=== PATIENT | female | born 1930 | race Hispanic/Latino ===

== ENCOUNTER → 2017-10-07 | Outpatient (CLI) | payer OTHER ==
[~2017-10-07] MED LIST: ACET-66 PO; ACET325T51 PO; ATOR40TA71 PO; CALC-866 PO; CEFU500T67 PO; CELE100 PO; DICL2100G TP; ENOX40DI8 SQ; FERR-63 PO; GEMF600T3 PO; GLIM2TAB3 PO; HYDR-309 PO; LEVO75 PO; SERT100T12 PO
== END | disposition home or self-care (01) ==
LOC: RAH 13:47
PROVIDERS: ATTEND Orthopaedic Surgery
DX: S72.001A Fracture of unspecified part of neck of right femur, initial encounter for closed fracture (principal); X58.XXXA Exposure to other specified factors, initial encounter; Y93.89 Activity, other specified; Y92.89 Other specified places as the place of occurrence of the external cause; Y99.8 Other external cause status
CPT/HCPCS: 73700

== ENCOUNTER 2017-10-08 15:50 | Inpatient (IN) | payer OTHER ==
[~2017-10-08] VITALS: Ht 157.5 cm; Wt 78.3 kg
[2017-10-08] MEDS ORDERED: SODIUM CHLORIDE 0.9% 1000ML 1,000 ML IV SCH (16:18)
[2017-10-08] MEDS ORDERED: POTASSIUM CHLORIDE 10% ELIXIR 20 MEQ/15 ML UDCUP PO PRN (16:30)
[2017-10-08] MEDS ORDERED: HYDROCODONE/ACETAMINOPHEN 5/325 MG TAB PO PRN (16:30)
[2017-10-08] MEDS ORDERED: HYDRALAZINE HCL 20 MG/ML VIAL IV PRN (16:30)
[2017-10-08] MEDS ORDERED: ONDANSETRON HCL 4 MG/2 ML VIAL IV PRN (16:30)
[2017-10-08] MEDS ORDERED: GUAIFENESIN-DM 200/20 MG 10 ML PO PRN (16:30)
[2017-10-08] MEDS: INSULIN HUMULIN R 100 UNIT/ML 3ML SQ SCH ×2 (16:30→21:00)
[2017-10-08] MEDS ORDERED: MAG HYDROX/AL HYDROX/SIMETH ES 30 ML SUSP UDCUP PO PRN (16:30)
[2017-10-08] MEDS ORDERED: ACETAMINOPHEN 325 MG TAB PO PRN ×2 (16:30)
[2017-10-08] MEDS ORDERED: LIDOCAINE HCL-MPF 1% 2ML VIAL IVP PRN (16:30)
[2017-10-08] MEDS ORDERED: POTASSIUM CHLORIDE 20MEQ/100ML 100 ML IV PRN (16:30)
[2017-10-08] MEDS ORDERED: NITROGLYCERIN 0.4 MG SL TAB SL PRN (16:30)
[2017-10-08 16:47] LABS: HEMATOCRIT 28.4 % (36-48); MEAN CORPUSCULAR HGB CONC 33.9 g/dL (32.0-36.0); MEAN CORPUSCULAR VOLUME 82.5 fL (79-99); PLATELET COUNT (AUTO) 180 K/uL (130-400); RED BLOOD CELL COUNT(AUTO) 3.44 MIL/uL (4.00-5.50); RED CELL DISTRIBUTION WIDTH 19.6 % (11.0-15.5); WHITE BLOOD COUNT (AUTO) 5.1 K/uL (4.8-10.8)
[2017-10-08 16:58] LABS: INR 1.07 (0.85-1.15); PARTIAL THROMBOPLASTIN TIME 34.6 SEC (26.3-35.5); PROTHROMBIN TIME 11.2 SEC (9.6-11.6)
[2017-10-08 17:16] LABS: ALANINE AMINOTRANSFERASE 9 U/L (12-78); ALBUMIN 2.7 g/dL (3.5-5.0); ASPARTATE AMINOTRANSFERASE 15 U/L (10-37); BILIRUBIN,TOTAL 0.3 mg/dL (0.2-1.0); CARBON DIOXIDE 21 mmol/L (21-32); CHLORIDE 106 mmol/L (101-111); CREATINE KINASE MB < 0.5 ng/mL (0.5-3.6); CREATINE KINASE, TOTAL 24 U/L (21-232); CREATININE 1.5 mg/dL (0.5-1.5); GLOMERULAR FILTR. RATE CALC 35 mL/min (>60); GLUCOSE,RANDOM 97 mg/dL (70-105); MYOGLOBIN 62 ng/mL (10-92); PHOSPHORUS 3.9 mg/dL (2.5-4.9); POTASSIUM 3.9 mmol/L (3.5-5.1); SODIUM SERUM 140 mmol/L (136-145); TOTAL PROTEIN, SERUM 6.4 g/dL (6.0-8.3); TROPONIN I < 0.04 ng/mL (0.00-0.06); UREA NITROGEN, BLOOD 36 mg/dL (7-18)
[2017-10-08 17:55] VITALS: BP 113/56
[2017-10-08] MEDS: MORPHINE SULFATE 2 MG/ML 1ML SYG IV PRN (18:08)
[2017-10-08 18:24] LABS: BAND NEUTROPHILS % (MANUAL) 7 % (0-2); LYMPHOCYTES % (MANUAL) 11 % (22-44); MONOCYTES % (MANUAL) 4 % (2-9); REACTIVE LYMPHOCYTES 3 % (0-0); SEGMENTED NEUTROPHILS % 75 % (40-70)
[2017-10-08] MEDS ORDERED: SERT100T12 PO (18:26)
[2017-10-08] MEDS ORDERED: HYDR-309 PO (18:26)
[2017-10-08] MEDS ORDERED: LEVO75 PO (18:26)
[2017-10-08] MEDS ORDERED: GEMF600T3 PO (18:26)
[2017-10-08] MEDS ORDERED: ACET325T51 PO (18:26)
[2017-10-08] MEDS ORDERED: ACET-66 PO (18:26)
[2017-10-08] MEDS ORDERED: FERR-63 PO (18:26)
[2017-10-08] MEDS ORDERED: GLIM2TAB3 PO (18:26)
[2017-10-08] MEDS ORDERED: CALC-866 PO (18:26)
[2017-10-08] MEDS ORDERED: ATOR40TA71 PO (18:26)
[2017-10-08] MEDS ORDERED: CELE100 PO (18:26)
[2017-10-08] MEDS ORDERED: DICL2100G TP (18:26)
[2017-10-08 18:28] LABS: MAN.DIFF COMMENT-IMPRESSION MANUAL DIFFERENTIAL
[2017-10-08 18:29] LABS: PLATELET MORPHOLOGY COMMENT PLT CLUMPS PRESENT
[2017-10-08 19:00] VITALS: BP 130/67
[2017-10-08 19:25] LABS: APPEARANCE,URINE CLOUDY (CLEAR); BILIRUBIN,URINE NEGATIVE (NEGATIVE); COLOR,URINE YELLOW (YELLOW); GLUCOSE, URINE (UA) NEGATIVE (NEGATIVE); KETONES,URINE NEGATIVE (NEGATIVE); LEUKOCYTE ESTERASE ,URINE MODERATE (NEGATIVE); NITRATE,URINE POSITIVE (NEGATIVE); OCCULT BLOOD,URINE TRACE-INTACT (NEGATIVE); PH,URINE 5.5 (5.0-8.0); PROTEIN,URINE 30 (NEGATIVE); UROBILINOGEN,URINE 0.2 mg/dL (0.2-1.0)
[2017-10-08 19:49] LABS: WBC,URINE >100 /HPF (0-1)
[2017-10-08 19:51] LABS: BACTERIA,URINE Moderate /HPF (None Seen); SQUAMOUS EPITHELIAL CELL,UR Rare /LPF (0-2)
[2017-10-08] MEDS: FAMOTIDINE 20MG TAB 20 MG TAB PO SCH (21:50)
[2017-10-08] MEDS: MORPHINE SULFATE 4 MG/1ML SYG IV PRN (22:09)
[2017-10-09] VITALS (44 sets, daily range): BP systolic 72–173; BP diastolic 32–102
[2017-10-09] MEDS: MORPHINE SULFATE 4 MG/1ML SYG IV PRN ×3 (02:18→20:44)
[2017-10-09 05:48] LABS: HEMATOCRIT 27.7 % (36-48); MEAN CORPUSCULAR HEMOGLOBIN 27.8 pg (27.0-33.0); MEAN CORPUSCULAR HGB CONC 34.2 g/dL (32.0-36.0); MEAN CORPUSCULAR VOLUME 81.3 fL (79-99); NUCLEATED RED BLOOD CELLS 0.1 % (0.0-0.19); PLATELET COUNT (AUTO) 189 K/uL (130-400); RED BLOOD CELL COUNT(AUTO) 3.41 MIL/uL (4.00-5.50); RED CELL DISTRIBUTION WIDTH 19.7 % (11.0-15.5); WHITE BLOOD COUNT (AUTO) 5.4 K/uL (4.8-10.8)
[2017-10-09 05:58] LABS: CREATININE 1.2 mg/dL (0.5-1.5); POTASSIUM 3.6 mmol/L (3.5-5.1)
[2017-10-09] MEDS ORDERED: CEFAZOLIN 2GM / 50 ML 50 ML IV ONE (07:00)
[2017-10-09] MEDS ORDERED: CEFAZOLIN SODIUM 1 GM VIAL IVP SCH ×2 (07:00→16:45)
[2017-10-09] MEDS: INSULIN HUMULIN R 100 UNIT/ML 3ML SQ SCH ×4 (07:29→21:00)
[2017-10-09] MEDS: FAMOTIDINE 20MG TAB 20 MG TAB PO SCH ×2 (08:08→20:50)
[2017-10-09] MEDS ORDERED: SODIUM CHLORIDE 0.9% 1000ML 1,000 ML IV ONE (09:05)
[2017-10-09] MEDS ORDERED: WATER FOR INJECTION,STERILE 20 ML VIAL ONE (09:05)
[2017-10-09] MEDS: MORPHINE SULFATE 2 MG/ML 1ML SYG IV PRN ×2 (09:25→20:44)
[2017-10-09] MEDS ORDERED: LIDOCAINE PF 2% 5ML ABBOJECT ONE (09:37)
[2017-10-09] MEDS ORDERED: DEXAMETHASONE SOD PHOSPHATE 10MG/ML 1ML VIAL ONE (09:37)
[2017-10-09] MEDS ORDERED: NEOSTIGMINE METHYLSULFATE 1MG/ML IV ONE (09:37)
[2017-10-09] MEDS ORDERED: SUCCINYLCHOLINE 200MG/10ML SYR ONE (09:37)
[2017-10-09] MEDS ORDERED: ONDANSETRON HCL 4 MG/2 ML VIAL ONE (09:37)
[2017-10-09] MEDS ORDERED: GLYCOPYRROLATE 0.2 MG/ML 5 ML VIAL ONE (09:37)
[2017-10-09] MEDS ORDERED: PROPOFOL 10 MG/ML 20ML VIAL IV ONE (09:38)
[2017-10-09] MEDS ORDERED: MIDAZOLAM HCL 1 MG/ML 2ML VIAL ONE (09:38)
[2017-10-09] MEDS ORDERED: FENTANYL CITRATE PF 50 MCG/1 ML 2ML VIAL ONE ×2 (09:38→13:58)
[2017-10-09] MEDS ORDERED: ROPIVACAINE 0.5% 5MG/ML 30ML IJ ONE (09:44)
[2017-10-09] MEDS ORDERED: CEFTRIAXONE 1GM/D5W 50ML 50 ML IV SCH ×2 (10:15→16:30)
[2017-10-09] MEDS ORDERED: CEFTRIAXONE SODIUM 1 GM IVP SCH (10:15)
[2017-10-09] MEDS ORDERED: CEFAZOLIN SODIUM 1 GM VIAL ONE (10:57)
[2017-10-09] MEDS ORDERED: SODIUM CHLORIDE 0.9% 1000ML 1,000 ML IV SCH (11:41)
[2017-10-09] MEDS ORDERED: POTASSIUM CHLORIDE 20 MEQ ERTAB PO PRN (11:45)
[2017-10-09] MEDS ORDERED: PROMETHAZINE HCL 25 MG/ML 1ML AMPULE IM PRN (11:45)
[2017-10-09] MEDS ORDERED: POTASSIUM CHLORIDE 10% ELIXIR 20 MEQ/15 ML UDCUP PO PRN (11:45)
[2017-10-09] MEDS ORDERED: DiphenhydrAMINE HCL 50 MG/ML VIAL IVP PRN (11:45)
[2017-10-09] MEDS ORDERED: DIPHENHYDRAMINE HCL 25 MG CAPSULE PO PRN (11:45)
[2017-10-09] MEDS ORDERED: TRAMADOL HCL 50 MG TABLET PO PRN (11:45)
[2017-10-09] MEDS ORDERED: TEMAZEPAM 15 MG CAPSULE PO PRN (11:45)
[2017-10-09] MEDS ORDERED: POTASSIUM CHLORIDE 20MEQ/100ML 100 ML IV PRN (11:45)
[2017-10-09] MEDS ORDERED: FERROUS FUMARATE 324 MG TABLET PO PRN (11:45)
[2017-10-09] MEDS ORDERED: CALCIUM CARBONATE 500 MG TABLET PO PRN (11:45)
[2017-10-09] MEDS ORDERED: LIDOCAINE HCL-MPF 1% 2ML VIAL IVP PRN (11:45)
[2017-10-09] MEDS ORDERED: LABETALOL HCL 5 MG/ML 20ML VIAL IV ONE (11:48)
[2017-10-09] MEDS ORDERED: IPRATROPIUM 0.5 MG/2.5 ML INH IH ONE (12:46)
[2017-10-09] MEDS ORDERED: ESMOLOL HCL 10 MG/ML 10 ML VIAL ONE (12:52)
[2017-10-09 13:03] LABS: ABG BASE EXCESS -13.6 mmol/L (-2.0-3.0); ABG HCO3 15.6 mmol/L (21.0-28.0); ABG OXYGEN SATURATION 90.8 % (95.0-99.0); ABG PCO2 51 mmHg (32-45)
[2017-10-09] MEDS ORDERED: SODIUM BICARB 8.4% 50ML SYRINGE ONE ×3 (13:04→14:13)
[2017-10-09 13:15] LABS: HEMATOCRIT 31.5 % (36-48); MEAN CORPUSCULAR HEMOGLOBIN 27.7 pg (27.0-33.0); MEAN CORPUSCULAR HGB CONC 32.9 g/dL (32.0-36.0); PLATELET COUNT (AUTO) 276 K/uL (130-400); RED BLOOD CELL COUNT(AUTO) 3.75 MIL/uL (4.00-5.50); WHITE BLOOD COUNT (AUTO) 11.6 K/uL (4.8-10.8)
[2017-10-09 13:32] LABS: CARBON DIOXIDE 20 mmol/L (21-32); CHLORIDE 107 mmol/L (101-111); CREATININE 1.3 mg/dL (0.5-1.5); GLOMERULAR FILTR. RATE CALC 41 mL/min (>60); GLUCOSE,RANDOM 149 mg/dL (70-105); POTASSIUM 4.2 mmol/L (3.5-5.1); SODIUM SERUM 141 mmol/L (136-145); UREA NITROGEN, BLOOD 25 mg/dL (7-18)
[2017-10-09 13:52] LABS: BAND NEUTROPHILS % (MANUAL) 10 % (0-2); BASOPHILS % (MANUAL) 1 % (0-2); EOSINOPHILS % (MANUAL) 1 % (1-6); LYMPHOCYTES % (MANUAL) 9 % (22-44); MAN.DIFF COMMENT-IMPRESSION MANUAL DIFFERENTIAL; MONOCYTES % (MANUAL) 5 % (2-9); PLATELET MORPHOLOGY COMMENT ADEQUATE; SEGMENTED NEUTROPHILS % 74 % (40-70)
[2017-10-09 14:11] LABS: CREATINE KINASE MB 0.9 ng/mL (0.5-3.6); CREATINE KINASE, TOTAL 54 U/L (21-232); MYOGLOBIN 190 ng/mL (10-92); TROPONIN I < 0.04 ng/mL (0.00-0.06)
[2017-10-09 14:38] LABS: ABG OXYGEN SATURATION 88.8 % (95.0-99.0); ABG PCO2 38 mmHg (32-45)
[2017-10-09] MEDS ORDERED: IPRATROPIUM/ALBUTEROL SULFATE 3 ML SOLUTION IH ONE (14:53)
[2017-10-09] MEDS ORDERED: IPRATROPIUM/ALBUTEROL SULFATE 3 ML SOLUTION IH SCH (15:00)
[2017-10-09] MEDS ORDERED: CEFAZOLIN 2GM / 50 ML 50 ML IV SCH (16:45)
[2017-10-09] MEDS: CEFTRIAXONE SODIUM 1 GM IVP SCH (17:31)
[2017-10-09] MEDS: IPRATROPIUM/ALBUTEROL SULFATE 3 ML SOLUTION IH SCH (19:20)
[2017-10-09] MEDS: ATORVASTATIN CALCIUM 40 MG TABLET PO SCH (20:50)
[2017-10-09] MEDS: GEMFIBROZIL 600 MG TABLET PO SCH (20:50)
[2017-10-09] MEDS: SERTRALINE HCL 50 MG TABLET PO SCH (21:58)
[2017-10-10] VITALS (8 sets, daily range): BP systolic 88–109; BP diastolic 45–61
[2017-10-10] MEDS: IPRATROPIUM/ALBUTEROL SULFATE 3 ML SOLUTION IH SCH ×5 (00:14→17:23)
[2017-10-10] MEDS: KETOROLAC TROMETHAMINE 15MG/ML IV PRN (01:09)
[2017-10-10] MEDS: HYDROCODONE/ACETAMINOPHEN 5/325 MG TAB PO PRN ×3 (04:49→20:35)
[2017-10-10 05:00] LABS: MEAN CORPUSCULAR HEMOGLOBIN 28.7 pg (27.0-33.0); MEAN CORPUSCULAR HGB CONC 34.9 g/dL (32.0-36.0); MEAN CORPUSCULAR VOLUME 82.2 fL (79-99); PLATELET COUNT (AUTO) 163 K/uL (130-400); RED BLOOD CELL COUNT(AUTO) 2.92 MIL/uL (4.00-5.50); RED CELL DISTRIBUTION WIDTH 19.9 % (11.0-15.5); WHITE BLOOD COUNT (AUTO) 4.8 K/uL (4.8-10.8)
[2017-10-10 05:10] LABS: B-TYPE NATRIURETIC PEPTIDE 518 pg/mL (0-100); CREATININE 1.2 mg/dL (0.5-1.5); POTASSIUM 3.4 mmol/L (3.5-5.1)
[2017-10-10] MEDS: MORPHINE SULFATE 4 MG/1ML SYG IV PRN (06:04)
[2017-10-10] MEDS: INSULIN HUMULIN R 100 UNIT/ML 3ML SQ SCH ×4 (07:30→21:00)
[2017-10-10] MEDS ORDERED: SERTRALINE HCL 50 MG TABLET PO SCH (09:00)
[2017-10-10] MEDS: GEMFIBROZIL 600 MG TABLET PO SCH ×2 (09:44→20:34)
[2017-10-10] MEDS: LEVOTHYROXINE 75 MCG TABLET PO SCH (09:44)
[2017-10-10] MEDS: FERROUS SULFATE 325 MG TABLET.DR PO SCH (09:44)
[2017-10-10] MEDS: FAMOTIDINE 20MG TAB 20 MG TAB PO SCH ×2 (09:44→20:34)
[2017-10-10] MEDS: ENOXAPARIN SODIUM 40 MG/0.4 ML SYRINGE SQ SCH (09:45)
[2017-10-10] MEDS: POLYETHYLENE GLYCOL 3350 17 GM POWD.PACK PO SCH (09:45)
[2017-10-10] MEDS: POTASSIUM CHLORIDE 20 MEQ ERTAB PO PRN ×2 (09:45→13:37)
[2017-10-10] MEDS ORDERED: WATER FOR INJECTION,STERILE 20 ML VIAL ONE (17:19)
[2017-10-10] MEDS: CEFTRIAXONE SODIUM 1 GM IVP SCH (18:44)
[2017-10-10] MEDS: ATORVASTATIN CALCIUM 40 MG TABLET PO SCH (20:34)
[2017-10-10] MEDS: SERTRALINE HCL 50 MG TABLET PO SCH (20:35)
[2017-10-10] MEDS: **HM** VIT D3 5000 UNITS PO SCH (21:00)
[2017-10-11] VITALS (7 sets, daily range): BP systolic 114–125; BP diastolic 53–61
[2017-10-11] MEDS: HYDROCODONE/ACETAMINOPHEN 5/325 MG TAB PO PRN ×4 (00:24→21:07)
[2017-10-11] MEDS: IPRATROPIUM/ALBUTEROL SULFATE 3 ML SOLUTION IH SCH ×5 (00:38→23:51)
[2017-10-11] MEDS: MORPHINE SULFATE 4 MG/1ML SYG IV PRN ×2 (02:54→23:19)
[2017-10-11] MEDS: KETOROLAC TROMETHAMINE 15MG/ML IV PRN ×2 (04:23→09:50)
[2017-10-11 05:12] LABS: HEMATOCRIT 24.2 % (36-48); MEAN CORPUSCULAR HEMOGLOBIN 27.6 pg (27.0-33.0); MEAN CORPUSCULAR HGB CONC 33.8 g/dL (32.0-36.0); MEAN CORPUSCULAR VOLUME 81.4 fL (79-99); NUCLEATED RED BLOOD CELLS 0.1 % (0.0-0.19); PLATELET COUNT (AUTO) 167 K/uL (130-400); RED BLOOD CELL COUNT(AUTO) 2.97 MIL/uL (4.00-5.50); RED CELL DISTRIBUTION WIDTH 19.8 % (11.0-15.5); WHITE BLOOD COUNT (AUTO) 4.5 K/uL (4.8-10.8)
[2017-10-11 05:17] LABS: CREATININE 1.3 mg/dL (0.5-1.5)
[2017-10-11] MEDS: LEVOTHYROXINE 75 MCG TABLET PO SCH (06:23)
[2017-10-11] MEDS: INSULIN HUMULIN R 100 UNIT/ML 3ML SQ SCH ×4 (06:33→21:00)
[2017-10-11] MEDS: FERROUS SULFATE 325 MG TABLET.DR PO SCH (08:22)
[2017-10-11] MEDS: GEMFIBROZIL 600 MG TABLET PO SCH ×2 (08:22→21:06)
[2017-10-11] MEDS: GLIMEPIRIDE 2 MG TABLET PO SCH (08:22)
[2017-10-11] MEDS: FAMOTIDINE 20MG TAB 20 MG TAB PO SCH ×2 (08:22→21:06)
[2017-10-11] MEDS: POLYETHYLENE GLYCOL 3350 17 GM POWD.PACK PO SCH (08:22)
[2017-10-11] MEDS: ENOXAPARIN SODIUM 40 MG/0.4 ML SYRINGE SQ SCH (08:23)
[2017-10-11] MEDS ORDERED: MAGNESIUM 2GM PREMIX 50ML 50 ML IV SCH (10:15)
[2017-10-11] MEDS: LACTULOSE 20 GM/30 ML UDCUP PO PRN (11:07)
[2017-10-11] MEDS: PHENAZOPYRIDINE HCL 200 MG TABLET PO SCH ×2 (16:27→21:05)
[2017-10-11] MEDS ORDERED: WATER FOR INJECTION,STERILE 20 ML VIAL ONE (16:28)
[2017-10-11] MEDS: CEFTRIAXONE SODIUM 1 GM IVP SCH (16:39)
[2017-10-11] MEDS: **HM** VIT D3 5000 UNITS PO SCH (21:00)
[2017-10-11] MEDS: ATORVASTATIN CALCIUM 40 MG TABLET PO SCH (21:06)
[2017-10-11] MEDS: SERTRALINE HCL 50 MG TABLET PO SCH (21:06)
[2017-10-12] MEDS: HYDROCODONE/ACETAMINOPHEN 5/325 MG TAB PO PRN ×4 (02:08→23:49)
[2017-10-12 04:00] VITALS: BP 138/63
[2017-10-12] MEDS ORDERED: MORPHINE SULFATE 10 MG/ML 1ML SYG ONE (05:04)
[2017-10-12] MEDS: LACTULOSE 20 GM/30 ML UDCUP PO PRN ×2 (06:08→21:27)
[2017-10-12] MEDS: LEVOTHYROXINE 75 MCG TABLET PO SCH (06:08)
[2017-10-12] MEDS: INSULIN HUMULIN R 100 UNIT/ML 3ML SQ SCH ×4 (06:13→21:00)
[2017-10-12] MEDS: IPRATROPIUM/ALBUTEROL SULFATE 3 ML SOLUTION IH SCH ×4 (07:17→23:05)
[2017-10-12 08:03] VITALS: BP 118/51
[2017-10-12] MEDS: GEMFIBROZIL 600 MG TABLET PO SCH ×2 (09:01→21:27)
[2017-10-12] MEDS: FERROUS SULFATE 325 MG TABLET.DR PO SCH (09:02)
[2017-10-12] MEDS: GLIMEPIRIDE 2 MG TABLET PO SCH (09:02)
[2017-10-12] MEDS: PHENAZOPYRIDINE HCL 200 MG TABLET PO SCH ×3 (09:02→21:28)
[2017-10-12] MEDS: FAMOTIDINE 20MG TAB 20 MG TAB PO SCH ×2 (09:02→21:28)
[2017-10-12] MEDS: POLYETHYLENE GLYCOL 3350 17 GM POWD.PACK PO SCH (09:02)
[2017-10-12] MEDS: ENOXAPARIN SODIUM 40 MG/0.4 ML SYRINGE SQ SCH (09:02)
[2017-10-12] MEDS ORDERED: CEFU500T67 PO (10:35)
[2017-10-12] MEDS ORDERED: ENOX40DI8 SQ (11:44)
[2017-10-12 11:47] VITALS: BP 106/55
[2017-10-12 16:07] VITALS: BP 125/59
[2017-10-12] MEDS: CEFTRIAXONE SODIUM 1 GM IVP SCH (17:45)
[2017-10-12] MEDS: KETOROLAC TROMETHAMINE 15MG/ML IV PRN (17:45)
[2017-10-12 19:00] VITALS: BP 117/57
[2017-10-12] MEDS: **HM** VIT D3 5000 UNITS PO SCH (21:00)
[2017-10-12] MEDS: SERTRALINE HCL 50 MG TABLET PO SCH (21:27)
[2017-10-12] MEDS: ATORVASTATIN CALCIUM 40 MG TABLET PO SCH (21:28)
[2017-10-12 23:00] VITALS: BP 136/62
[2017-10-13] MEDS: MORPHINE SULFATE 2 MG/ML 1ML SYG IV PRN ×2 (01:41→10:38)
[2017-10-13 04:00] VITALS: BP 155/68
[2017-10-13] MEDS: IPRATROPIUM/ALBUTEROL SULFATE 3 ML SOLUTION IH SCH ×2 (05:26→14:00)
[2017-10-13] MEDS: INSULIN HUMULIN R 100 UNIT/ML 3ML SQ SCH ×3 (06:42→16:30)
[2017-10-13] MEDS: LEVOTHYROXINE 75 MCG TABLET PO SCH (06:45)
[2017-10-13 08:13] VITALS: BP 126/57
[2017-10-13] MEDS: GEMFIBROZIL 600 MG TABLET PO SCH (08:19)
[2017-10-13] MEDS: POLYETHYLENE GLYCOL 3350 17 GM POWD.PACK PO SCH (08:19)
[2017-10-13] MEDS: FERROUS SULFATE 325 MG TABLET.DR PO SCH (08:19)
[2017-10-13] MEDS: GLIMEPIRIDE 2 MG TABLET PO SCH (08:19)
[2017-10-13] MEDS: FAMOTIDINE 20MG TAB 20 MG TAB PO SCH (08:19)
[2017-10-13] MEDS: ENOXAPARIN SODIUM 40 MG/0.4 ML SYRINGE SQ SCH (08:20)
[2017-10-13] MEDS: PHENAZOPYRIDINE HCL 200 MG TABLET PO SCH ×2 (08:23→14:09)
[2017-10-13] MEDS: HYDROCODONE/ACETAMINOPHEN 5/325 MG TAB PO PRN ×2 (08:23→20:03)
[2017-10-13] MEDS ORDERED: MAGNESIUM CITRATE 296 ML SOLUTION PO SCH (10:45)
[2017-10-13 11:39] VITALS: BP 127/59
[2017-10-13] MEDS: KETOROLAC TROMETHAMINE 15MG/ML IV PRN (14:29)
[2017-10-13 16:27] VITALS: BP 129/53
[2017-10-13] MEDS ORDERED: WATER FOR INJECTION,STERILE 20 ML VIAL ONE (16:46)
[2017-10-13] MEDS: CEFTRIAXONE SODIUM 1 GM IVP SCH (17:24)
[2017-10-13 20:52] VITALS: BP 121/51
== END 2017-10-13 22:10 | DRG 481 ==
LOC: EDH 15:50 → 4AH 16:00
PROVIDERS: ADMIT Orthopaedic Surgery; ATTEND Orthopaedic Surgery
PROC: 0QS606Z Reposition Right Upper Femur with Intramedullary Internal Fixation Device, Open Approach (ICD-10-PCS; principal; 2017-10-09 09:51)
DX: S72.141A Displaced intertrochanteric fracture of right femur, initial encounter for closed fracture (principal); N39.0 Urinary tract infection, site not specified; E11.65 Type 2 diabetes mellitus with hyperglycemia; W19.XXXA Unspecified fall, initial encounter; E78.5 Hyperlipidemia, unspecified; E03.9 Hypothyroidism, unspecified; F32.9 Major depressive disorder, single episode, unspecified; M19.90 Unspecified osteoarthritis, unspecified site; I10 Essential (primary) hypertension; Z79.84 Long term (current) use of oral hypoglycemic drugs; Z79.899 Other long term (current) drug therapy; Z83.3 Family history of diabetes mellitus; Z90.710 Acquired absence of both cervix and uterus; Y92.198 Other place in other specified residential institution as the place of occurrence of the external cause; Y99.8 Other external cause status; Y93.89 Activity, other specified
CPT/HCPCS: 36415; 36600; 71045; 73700; 76000; 80048; 80053; 81001; 82330; 82435; 82550; 82553; 82803; 82947; 82948; 83605; 83735; 83874; 83880; 84100; 84132; 84295; 84484; 85018; 85025; 85027; 85610; 85730; 86850; 86900; 86901; 87088; 87186; 93005; 94002; 94640; 94660; 94664; 96374; 97039; A4218; J0330; J0690; J0696; J1100; J1650; J1815; J1885; J2001; J2250; J2270; J2405; J2704; J2710; J2795; J3010; J3475; J3490; J7030